=== PATIENT | male | born 2000 | race Caucasian/White ===

== ENCOUNTER 2020-07-30 11:36 | Outpatient (REF) | payer OTHER, SELFPAY ==
[2020-07-30 12:08] LABS: COVID-19 Test Negative (Negative)
== END 2020-07-30 11:37 | disposition home or self-care (01) ==
LOC: HO.LAB 11:36
PROVIDERS: Visit Provider Internal Medicine
DX: Z20.828 Contact with and (suspected) exposure to other viral communicable diseases (principal)
CPT/HCPCS: 87635

== ENCOUNTER 2020-08-23 12:35 | Outpatient (REF) | payer OTHER, SELFPAY ==
[2020-08-23 13:15] LABS: COVID-19 Test Negative (Negative)
== END 2020-08-23 12:36 | disposition home or self-care (01) ==
LOC: HO.LAB 12:35
PROVIDERS: Visit Provider Internal Medicine
DX: Z20.828 Contact with and (suspected) exposure to other viral communicable diseases (principal)
CPT/HCPCS: 87635

== ENCOUNTER 2022-05-09 12:09 | Emergency (ER) | payer OTHER, SELFPAY | END 2022-05-09 13:15 | disposition left against medical advice (07) | PROVIDERS: Emergency Provider Emergency Medicine | DX: R69 Illness, unspecified (principal) ==

== ENCOUNTER 2022-05-10 11:23 | Emergency (ER) | payer OTHER, SELFPAY ==
--- NOTE | ~2022-05-10 | US_ITS ---
EXAMINATION: US SCROTUM CLINICAL INFORMATION: Left scrotal pain. Rule out hernia.. COMPARISON: None TECHNIQUE: A sonogram of the scrotum was performed assessing estrada-scale appearance and color Doppler flow. Spectral Doppler analysis of the arterial and venous flow were performed in the testes bilaterally. FINDINGS: RIGHT: Right testicle measures 4.5 x 2.1 x 3.2 cm, volume 15.9 mL. No focal testicular parenchymal lesions are visualized. Spectral Doppler analysis of the arterial and venous flow is present in the right testis. Right epididymal head is normal in size. No significant right hydrocele or varicocele is seen. Right epididymal Doppler flow is normal. A small epididymal cyst measures 0.6 cm in maximum size. LEFT: Left testicle measures 4.6 x 1.9 x 2.7 cm, volume 12 mL. No focal testicular parenchymal lesions are visualized. Spectral Doppler analysis of the arterial and venous flow is present in the left testis. Left epididymal head is normal in size. No significant left hydrocele. Moderate left varicocele is seen. Left epididymal Doppler flow is normal. US/US scrotum IMPRESSION: Normal testes. Small right epididymal cyst and moderate left varicocele. A hernia was not noted on this examination. A dedicated ultrasound of the inguinal region is not performed.
--- NOTE | ~2022-05-10 | US_ITS ---
EXAMINATION: US SCROTUM CLINICAL INFORMATION: Left scrotal pain. Rule out hernia.. COMPARISON: None TECHNIQUE: A sonogram of the scrotum was performed assessing estrada-scale appearance and color Doppler flow. Spectral Doppler analysis of the arterial and venous flow were performed in the testes bilaterally. FINDINGS: RIGHT: Right testicle measures 4.5 x 2.1 x 3.2 cm, volume 15.9 mL. No focal testicular parenchymal lesions are visualized. Spectral Doppler analysis of the arterial and venous flow is present in the right testis. Right epididymal head is normal in size. No significant right hydrocele or varicocele is seen. Right epididymal Doppler flow is normal. A small epididymal cyst measures 0.6 cm in maximum size. LEFT: Left testicle measures 4.6 x 1.9 x 2.7 cm, volume 12 mL. No focal testicular parenchymal lesions are visualized. Spectral Doppler analysis of the arterial and venous flow is present in the left testis. Left epididymal head is normal in size. No significant left hydrocele. Moderate left varicocele is seen. Left epididymal Doppler flow is normal. US/US scrotum doppler IMPRESSION: Normal testes. Small right epididymal cyst and moderate left varicocele. A hernia was not noted on this examination. A dedicated ultrasound of the inguinal region is not performed.
[2022-05-10 11:55] VITALS: BP 127/62; PULSE 60; RESP 17; TEMP 36.1; O2SAT 98; BMI 20.4
--- NOTE | 2022-05-10 13:45 | ED.GENADULT ---
HPI - General Adult General Chief complaint: General Medical Stated complaint: Groin pain sent from urgent care Time Seen by Provider: 05/10/22 13:24 Source: patient Mode of arrival: ambulatory History of Present Illness HPI narrative: 21-year-old male with no significant past medical history presenting to the ED complaining of left upper scrotal pain times a few weeks s/p running around at work. Reports pain initially intermittent and now constant. Was seen at urgent care yesterday and recommended to come to ED for ultrasound. Denies trauma/injury, abdominal pain, flank pain, dysuria/hematuria, penile discharge, lesions, swelling/erythema. Is sexually active with 1 partner, denies history/concern for STI Onset (ago): week(s) Location: genitals Severity: moderate Related Data Allergies Allergy/AdvReac Type Severity Reaction Status Date / Time No Known Allergies Allergy Unverified 07/11/20 16:58 [No Known Allergies*] Review of Systems Review of Systems: Constitutional: No Fever, No Chills, No Night Sweats, No Fatigue, No Malaise ENT/Mouth: No Hearing loss, No Ear Pain, No Nasal Congestion, No sore throat, No Rhinorrhea, No Swallowing Difficulty Cardiovascular: No Chest Pain, No SOB Respiratory: No Cough, No Sputum, No Dyspnea Gastrointestinal: No Nausea, No Vomiting, No Diarrhea, No Constipation, No Abdominal pain, Genitourinary: No irregular bleeding, No Dysuria, No Urinary Frequency, No Hematuria, No Urinary Incontinence/retention, No Urgency, No Flank Pain, No Urinary Flow Changes, No Hesitancy, +scrotal pain, No swelling, No lesions Musculoskeletal: No joint pain, No Myalgias, No Joint Swelling Skin: No Skin Lesions, No rash Neuro: No Weakness, No Headache Yes all other systems are reviewed and are negative Constitutional: Constitutional: Reports as per [facility] Past Medical History Attestation statement: The following information was validated with the patient. Social History Social History Advance Directives: No Advance Directives Information Provided: No Physical Exam ED Vital Signs: Vital Signs - 24 hr 05/10/22 11:55 Temperature 97 F Pulse Rate 60 Respiratory Rate 17 Blood Pressure 127/62 Pulse Oximetry 98 Oxygen Delivery Method Room Air BMI result Body Mass Index 20.4 Const General: cooperative, healthy appearing and no acute distress Orientation/consciousness: patient oriented x3 Limitations: no limitations HENMT Head: Yes normal to inspection and Yes atraumatic Ears: hearing grossly normal bilaterally General nose exam: Normal external nose present Face and sinus: Yes normal facial exam Eyes General: appearance normal, both eyes and all related structures EOM: EOMs intact bilaterally Neck Neck: Yes normal visual inspection and Yes no meningeal signs Resp Effort & Inspection: normal respiratory effort and no respiratory distress Auscultation: clear to auscultation bilaterally Cardio Rate: regular rate Heart sounds: S1 normal heart sound present and S2 normal heart sound present GI Inspection: Yes normal to inspection Palpation (GI): Soft to palpation, nontender, no guarding and not rigid General: Yes no CVA tenderness Penis: normal penis and circumcised Meatus: meatus normal Scrotum: no ecchymosis, not edematous, not erythematous and other (+L scrotal tenderness) Testes: Testes normal, testicular lie normal, no masses and no testicular tenderness Back/Spine/Pelvis Back: no CVA tenderness Skin Rashes: no rashes Wounds: no wounds Neuro General: patient oriented x3, tone normal and no meningeal signs Gait exam (Neuro): Normal gait present Extrem General: Yes normal to inspection Course Course Course Narrative: -UA negative US scrotum IMPRESSION: Normal testes. Small right epididymal cyst and moderate left varicocele. ? A hernia was not noted on this examination. A dedicated ultrasound of the inguinal region is not performed. > results discussed with patient including needed follow-up with urology. He verbalized understanding and feels safe for discharge home Medical Decision Making MDM Narrative Medical decision making narrative: 21-year-old male with no significant past medical history presenting to the ED complaining of left upper scrotal pain times a few weeks s/p running around at work. On exam vital signs stable, NAD/nontoxic appearing, physical exam as above. Concern for varicocele vs inguinal hernia vs epididymitis/orchitis. No evidence of infection, no evidence of Barry gangrene. No appreciable lesions/erythema or cellulitis. Lower suspicion for testicular torsion Plan: UA, CT NG, scrotal ultrasound Medical Records Medical records reviewed: Yes I reviewed the patient's medical records. Lab Data Lab results reviewed: Yes I reviewed the patient's lab results. Labs: Lab Results 05/10/22 Range/Units 13:52 Urine Color YELLOW Urine Appearance CLEAR Urine pH 8.5 H (5.0-8.0) Ur Specific [place] 1.010 (1.005-1.025) Urine Protein NEG (NEG-TRACE) MG/DL Urine Glucose (UA) NEG (NEG) MG/DL Urine Ketones NEG (NEG) MG/DL Urine Blood NEG (NEG) Urine Nitrite NEG (NEG) Ur Leukocyte Esterase NEG (NEG) Discharge Plan Discharge Clinical Impression: Left varicocele Patient Disposition: Home, Self-Care Instructions: Varicocele (ED) Additional Instructions: Your ultrasound shows a small right epididymal cyst and a moderate left varicocele. This varicoceles likely was causing your pain, this has engorgement of your veins/vessels Treatment for this is recommended scrotal support, you can buy a scrotal sling Take Tylenol and Motrin Please follow-up with urology. If symptoms persist or worsen, pain becomes unbearable, he developed discharge from abdominal pain, nausea vomiting return to the emergency department Referrals: Toni Buck MD [Physician] - 5 days
[2022-05-10 13:59] LABS: Appearance Urine CLEAR; Color Urine YELLOW; Glucose Urine UA NEG (NEG); Leukocyte Esterase Urine NEG (NEG); Nitrite Urine NEG (NEG); PH 8.5 (5.0-8.0); Urine Blood NEG (NEG); Urine Ketones NEG (NEG); Urine Protein NEG (NEG-TRACE)
[2022-05-10 22:00] LABS: CT PCR NOT DETECTED (Not Detect.); NG PCR NOT DETECTED (Not Detect.)
== END 2022-05-10 15:09 | disposition home or self-care (01) ==
PROVIDERS: Physician Assistant; Emergency Provider Emergency Medicine
DX: I86.1 Scrotal varices (principal); R10.32 Left lower quadrant pain; Z79.899 Other long term (current) drug therapy; Z20.2 Contact with and (suspected) exposure to infections with a predominantly sexual mode of transmission
CPT/HCPCS: 76870; 81003; 87491; 87591; 93975; 99282; 99283

== ENCOUNTER 2023-10-02 10:14 | Outpatient (AMB) | payer OTHER, SELFPAY ==
--- NOTE | 2023-10-02 10:41 | MHC.OFFWIV ---
Intake Vital Signs 10/02/23 10:42 Height 6 ft 1 in Weight 169 lb BMI 22.3 BP 90/60 Blood Pressure Location Rt brachial Position Sitting Pulse 60 Pulse Source Pulse Oximeter Temp 98.2 F Temp Source Oral Pulse Oximetry (%) 97 Oxygen Delivery Method Room Air Intake Visit Reasons: EP, tachycardia Intake Note: Pt is here today c/o tightness in his chest: x4days Patient Tobacco Use Status: Current everyday Tobacco user Allergies No Known Allergies [No Known Allergies*] Allergy (Verified 10/02/23 11:07) Do you need a note to return to daycare/school/sports/work: No HPI HPI Comments History of Present Illness Details 22-year-old male that presents for chest discomfort. Patient was recently started on doxycycline for suspected chlamydia. After taking doxycycline developed chest heaviness and left arm pain. Denies shortness of breath nausea vomiting other associated signs and symptoms. The pain is worse with palpation and. PFSH Social History Patient Tobacco Use Status: Current everyday Tobacco user Review of Systems Card Reports chest pain Physical Exam Vital Signs: Last Vital Signs Temp 98.2 F 10/02/23 10:42 Pulse 60 10/02/23 10:42 BP 90/60 10/02/23 10:42 Pulse Ox 97 10/02/23 10:42 Oxygen Delivery Method Room Air 10/02/23 10:42 BMI result Body Mass Index 22.3 Const General: cooperative, no acute distress and alert Orientation/consciousness: patient oriented x3 Limitations: no limitations HEENT Head: Yes normal to inspection Ears: hearing grossly normal bilaterally and external ears normal General nose exam: Normal external nose present Eyes General: appearance normal, both eyes and all related structures Neck Neck: Yes normal visual inspection Chest Chest palpation & inspection: normal inspection of the chest Resp Effort & Inspection: normal respiratory effort, able to speak in complete sentences and no audible wheezes Auscultation: clear to auscultation bilaterally Cardio Rate: regular rate Rhythm: regular rhythm GI Inspection: Yes normal to inspection Palpation (GI): Soft to palpation and nontender Skin General skin exam: no rashes or lesions noted Neuro General: patient oriented x3 Psych Appearance: grossly normal Mental Status: mental status grossly normal Speech and movement: Normal speech and movement present Affect: normal affect Attitude: cooperative Thought process: Normal thought process present Thought content: Normal thought content present Assessment & Plan Assessment & Plan (1) Chest discomfort: Code(s): R07.89 - Other chest pain Plan: Exam is largely reassuring as chest pain is reproducible. Vitals are within normal limits no murmurs rubs or gallops. Unclear etiology of patient's chest discomfort. Will suspicion for PTX given clear lung sounds bilaterally no trauma. Suspect musculoskeletal in nature will order EKG. EKG shows sinus bradycardia rate of 48 intervals normal new significant ST segment changes however mild shoe elevation the precordial leads in the inferior leads for present early repol. Discussed his findings with the patient stated that certain things cannot be ruled out such as OK in pericarditis the low suspicion for those recommended for into the emergency department for further evaluation for she has declined at this time patient states he will follow Wednesday. Orders: Orders AMB EKG-In Office Today R07.9 - Chest pain, unspecified Coding Level of Care Code Est Pt Level 3 (36608) Diagnoses Chest discomfort R07.89
[2023-10-02 10:42] VITALS: BP 90/60; PULSE 60; TEMP 36.8; O2SAT 97; BMI 22.3
== END 2023-10-02 11:35 | disposition home or self-care (01) ==
PROVIDERS: PCP Physician Assistant; Visit Provider Physician Assistant
DX: R07.89 Other chest pain (principal)
CPT/HCPCS: 93000; 99051; 99213

== ENCOUNTER 2023-10-21 12:38 | Emergency (ER) | payer OTHER, SELFPAY ==
--- NOTE | ~2023-10-21 | CT_ITS ---
EXAMINATION: CT ABDOMEN AND PELVIS WITHOUT CONTRAST CLINICAL INFORMATION: Bilateral flank pain, dark urine. COMPARISON: None available. TECHNIQUE: Multidetector volumetric imaging was performed from the superior aspect of the liver through the pubic symphysis. Sagittal and coronal reformatted images were obtained on the technologist's workstation. This CT examination was performed using dose optimization techniques as appropriate, variously including the following: *Automated exposure control *Adjustment of mA and/or kV according to patient size (this includes techniques or standardized protocols for targeted exams where dose is matched to indication/reason for exam; i.e. extremities or head) *Use of iterative reconstruction technique DLP: 390 mGy-cm FINDINGS: LUNG BASES: The visualized lung bases are unremarkable. LIVER, GALLBLADDER, AND BILIARY TREE: The liver is normal in size, shape, and attenuation. No focal hepatic lesion or biliary ductal dilatation is present. The gallbladder is unremarkable with no evidence of radiopaque gallstones, gallbladder wall thickening, or obvious pericholecystic inflammatory changes. PANCREAS: Unremarkable. SPLEEN: Unremarkable. ADRENAL GLANDS: Unremarkable. KIDNEYS AND URETERS: The kidneys are normal in size, shape, and attenuation. There is a 2 mm nonobstructive radiopaque calculi mid pole right kidney. No caliectasis or hydronephrosis seen. BLADDER: Unremarkable. GASTROINTESTINAL TRACT: There is moderate scattered stool seen throughout the colon without significant distention. The small bowel loops are normal caliber. Appendix is normal caliber at. No inflammatory process, free air or free fluid. ABDOMINAL WALL: No significant hernia is appreciated. LYMPH NODES: Normal. VASCULAR: Unremarkable. PELVIC VISCERA: Unremarkable. OSSEOUS STRUCTURES: No aggressive lytic or sclerotic process seen. CT/CT abdomen pelvis wo IV con IMPRESSION: 1. Nonobstructive 2 mm radiopaque calculi mid pole right kidney. No caliectasis or hydronephrosis seen. 2. Mild constipation. Fleischner guidelines were followed.
[2023-10-21 13:07] VITALS: BP 114/72; PULSE 77; RESP 16; TEMP 36.4; O2SAT 97; BMI 22.4
--- NOTE | 2023-10-21 13:07 | ED_ITS ---
HPI - General Adult General Chief complaint: Back Pain/Injury Stated complaint: kidney pain Time Seen by Provider: 10/21/23 18:15 Source: patient Mode of arrival: ambulatory Limitations: no limitations History of Present Illness HPI narrative: Patient no history of kidney stones in the past complaining of bilateral flank pain, suprapubic pain, dark urine no history of trauma feels some pain when he urinates no frequency no hematuria no history of substance abuse was seen and [facility] and started on antibiotics prophylactically but his GC and chlamydia were negative no penile discharge no fever no chills no nausea no vomiting Related Data Previous Rx's Medication Instructions Recorded ibuprofen 600 mg tablet 600 mg PO Q6H PRN fever or pain 10/21/23 #30 tabs Allergies Allergy/AdvReac Type Severity Reaction Status Date / Time No Known Allergies Allergy Verified 10/02/23 11:07 [No Known Allergies*] Review of Systems 2 Review of Systems: Yes all other systems are reviewed and are negative PMFSH Social History Social History Patient Tobacco Use Status: Current everyday Tobacco user Smoked in Last 30 Days: Yes Use of substances other than those prescribed or required for medical reasons: Yes Substance Use Type: Marijuana Advance Directives: No Advance Directives Information Provided: No Physical Exam ED Vital Signs: Vital Signs - 24 hr 10/21/23 13:07 10/21/23 18:31 Temperature 97.5 F Pulse Rate 77 63 Respiratory Rate 16 18 Blood Pressure 114/72 137/67 Pulse Oximetry 97 99 Oxygen Delivery Method Room Air Room Air BMI result Body Mass Index 22.4 Appearance: Alert. Oriented X3. No acute distress. Eyes: No pallor or icterus ENT: Pharynx normal. Oral Mucosa moist Neck: Normal inspection. Neck supple. CVS: Normal heart rate and rhythm. Pulses normal. Respiratory: No respiratory distress. Equal air entry bilateral, Abdomen: Soft and nontender. Bowel sounds are present, no mass palpable, left CVA tenderness mild no midline tenderness Skin: Skin warm and dry. Normal skin color. Normal skin turgor. Neuro: Oriented X 3. Course Course Course Narrative: RME:?23 yo male here with my kidneys hurt . +intermittent bilateral flank pain x3 weeks, becoming more constant. + dysuria, dark, foul smelling urine. Reports same pain 1 mo ago, evaluated, diagnosed w/ UTI, started doxy, stopped taking it. sexually active w/ one partner, no concern for STD. negative CT/NG test one mo ago. denies penile discharge, fever, chills, abdominal pain. + well appearing, no CVAT plan: labs, UA, CT Full HPI, ROS and PE to be performed by the primary ED provider. Medications Administered Discontinued Medications Generic Name Dose Route Start Last Admin Trade Name Freq PRN Reason Stop Dose Admin Ibuprofen 600 mg 10/21/23 18:32 10/21/23 18:39 Ibuprofen 600 Mg Tablet PO 10/21/23 18:33 Not Given ONCE ONE Medical Decision Making Medical Decision Making [facility] Narrative: Patient with back pain workup is negative discharge patient on ibuprofen likely muscular strain Differential Diagnosis Differential Diagnoses: The differential diagnosis associated with the presentation includes Kidney stone/UTI/STI Lab Data [facility] Lab Attestation statement: I reviewed the patient's lab results. 10/21/23 13:20 10/21/23 13:20 Labs: Lab Results 10/21/23 10/21/23 Range/Units 13:20 13:24 WBC 7.3 (4.8-10.8) X10*3/uL RBC 4.79 (4.60-5.80) X10*6/uL Hgb 14.4 (14.0-18.0) g/dl Hct 41.9 L (42.0-52.0) % MCV 87.5 (80.0-98.0) fL MCH 30.1 (27.0-33.0) pg MCHC 34.4 (31.0-36.0) g/dl RDW 12.4 (11.0-16.0) % Plt Count 227 (160-400) X10*3/uL MPV 9.1 L (9.4-12.4) fL Immature Gran % (Auto) 0.3 (0.0-0.4) % Neut % (Auto) 48.8 (45-73) % Lymph % (Auto) 37.2 (20-40) % Starke % (Auto) 12.2 H (2-11) % Eos % (Auto) 1.2 (0-4) % Baso % (Auto) 0.3 (0-2) % Lymph # (Auto) 2.7 (1.2-4.9) X10*3/uL [place]ke # (Auto) 0.9 (0.1-1.2) X10*3/uL Eos # (Auto) 0.1 (0.0-0.4) X10*3/uL Baso # (Auto) 0.0 (0.0-0.2) X10*3/uL Abs Immat Gran (auto) 0.02 (0.00-0.03) X10*3/uL Absolute Neuts (auto) 3.6 (2.0-8.3) x10*3/uL Absolute Nucleated RBC 0.000 (0.0-0.012) X10*3/uL Nucleated RBC % (auto) 0.0 (0.0-0.2) /100WBC ESR 1 (0-15) MM/HR Sodium 140 (135-145) mmol/L Potassium 4.1 (3.3-5.1) mmol/L Chloride 105 (96-108) mmol/L Carbon Dioxide 29 (22-29) mmol/L Anion Gap 10 L (12-20) BUN 12 (9-16) mg/dL Creatinine 0.90 (0.5-1.4) mg/dL Estim Creat Clear Calc 136.8 Estimated GFR > 60 Random Glucose 84 (60-115) mg/dL Calcium 9.1 (8.4-10.2) mg/dL Magnesium 1.9 (1.6-2.6) mg/dL Total Creatine Kinase 97 (38-174) U/L C-Reactive Protein < 0.10 (< or = 0.50) mg/dL Urine Color Yellow Urine Appearance Clear Urine pH 6.5 (5.0-9.0) Ur Specific [place] 1.015 (1.005-1.025) Urine Protein Negative (Neg-Trace) mg/dL Urine Glucose (UA) Negative (Negative) mg/dL Urine Ketones Negative (Negative) mg/dL Urine Blood Negative (Negative) Urine Nitrite Negative (Negative) Ur Leukocyte Esterase Negative (Negative) Discharge Plan Discharge Clinical Impression: Renal colic Patient Disposition: Home, Self-Care Instructions: Renal Colic (ED) Additional Instructions: Causes of flank pain is not clear likely musculoskeletal Take ibuprofen for pain, drink plenty of fluids Your urine and CT scan negative for acute pathology Follow-up with PCP if not better Prescriptions: New ibuprofen 600 mg tablet 600 mg PO Q6H PRN (Reason: fever or pain) Qty: 30 0RF Interventions: ED Discharge Assessment Last Done: 10/21/23 18:40 Discharge Date/Time: 10/21/23 18:52
[2023-10-21 13:28] LABS: MANUAL DIFF FLAG NO
[2023-10-21 13:33] LABS: Basophils Percent Auto 0.3 % (0-2); Eosinophils Absolute Auto 0.1 X10*3/uL (0.0-0.4); Eosinophils Percent Auto 1.2 % (0-4); Hematocrit 41.9 % (42.0-52.0); Hemoglobin 14.4 g/dl (14.0-18.0); Imm Gran Abs Auto 0.02 X10*3/uL (0.00-0.03); Imm Gran Pct Auto 0.3 % (0.0-0.4); Lymphocytes Absolute Auto 2.7 X10*3/uL (1.2-4.9); Lymphocytes Percent Auto 37.2 % (20-40); Mean Corpuscular HGB Conc 34.4 g/dl (31.0-36.0); Mean Corpuscular Hemoglobin 30.1 pg (27.0-33.0); Mean Corpuscular Volume 87.5 fL (80.0-98.0); Mean Platelet Volume 9.1 fL (9.4-12.4); Monocytes Absolute Auto 0.9 X10*3/uL (0.1-1.2); Monocytes Percent Auto 12.2 % (2-11); Neutrophils Absolute Auto 3.6 x10*3/uL (2.0-8.3); Neutrophils Percent Auto 48.8 % (45-73); Platelet Count 227 X10*3/uL (160-400); Red Blood Count 4.79 X10*6/uL (4.60-5.80); Red Cell Distribution Width 12.4 % (11.0-16.0); White Blood Count 7.3 X10*3/uL (4.8-10.8)
[2023-10-21 13:34] LABS: Appearance Urine Clear; Color Urine Yellow; Glucose Urine UA Negative (Negative); Leukocyte Esterase Urine Negative (Negative); Nitrite Urine Negative (Negative); PH 6.5 (5.0-9.0); Specific Gravity - Urine 1.015 (1.005-1.025); Urine Blood Negative (Negative); Urine Ketones Negative (Negative); Urine Protein Negative (Neg-Trace)
[2023-10-21 13:46] LABS: Anion Gap 10 (12-20); Blood Urea Nitrogen 12 mg/dL (9-16); C Reactive Protein < 0.10 mg/dL (< or = 0.50); Calcium 9.1 mg/dL (8.4-10.2); Carbon Dioxide 29 mmol/L (22-29); Chloride 105 mmol/L (96-108); Creatinine Clr Calc Pharmacy 136.8; Estimated Glomerular Filt Rate > 60; Glucose Random 84 mg/dL (60-115); Magnesium 1.9 mg/dL (1.6-2.6); Potassium 4.1 mmol/L (3.3-5.1); Sodium 140 mmol/L (135-145)
[2023-10-21 14:11] LABS: Erythrocyte Sedimentation Rate 1 MM/HR (0-15)
[2023-10-21 18:31] VITALS: BP 137/67; PULSE 63; RESP 18; O2SAT 99
== END 2023-10-21 18:52 | disposition home or self-care (01) ==
LOC: HO.ED 18:51
PROVIDERS: Physician Assistant Medical; Emergency Provider Internal Medicine; PCP Physician Assistant
DX: N23 Unspecified renal colic (principal); M54.50 Low back pain, unspecified; Z79.899 Other long term (current) drug therapy
CPT/HCPCS: 36415; 74176; 80048; 81003; 82550; 83735; 85025; 85652; 86140; 99284

== ENCOUNTER 2024-07-11 15:42 | Emergency (ER) | payer BC, SELFPAY ==
--- NOTE | ~2024-07-11 | US_ITS ---
EXAMINATION: US SCROTUM CLINICAL INFORMATION: Right-sided scrotal pain and swelling. COMPARISON: Scrotal ultrasound May 10, 2022 TECHNIQUE: A sonogram of the scrotum was performed assessing estrada-scale appearance and color Doppler flow. Spectral Doppler analysis of the arterial and venous flow were performed in the testes bilaterally. FINDINGS: RIGHT: Right testicle measures 4.9 x 1.8 x 3 cm, volume 14 mL. No focal testicular parenchymal lesions are visualized. Spectral Doppler analysis of the arterial and venous flow is increased in the right testis. Right epididymal head is normal in size. Right-sided epididymal cyst measuring 0.5 x 0.4 x 0.5 cm. Right varicocele measuring 0.3 cm. Right epididymal Doppler flow is normal. Small right hydrocele. LEFT: Left testicle measures 4.6 x 1.9 x 3.3 cm, volume 14.6 mL. No focal testicular parenchymal lesions are visualized. Spectral Doppler analysis of the arterial and venous flow is normal in the left testis. Left epididymal head is normal in size. No left hydrocele is seen. Left varicocele measuring 0.3 cm. Left epididymal Doppler flow is normal. US/US scrotum doppler IMPRESSION: 1. No testicular torsion. 2. Right-sided epididymal cyst, unchanged. Small right hydrocele. 3. Bilateral varicoceles, more prominent on the left. Electronically signed by: Larry Kohler MD 07/11/2024 08:00 PM EDT
--- NOTE | ~2024-07-11 | US_ITS ---
EXAMINATION: US SCROTUM CLINICAL INFORMATION: Right-sided scrotal pain and swelling. COMPARISON: Scrotal ultrasound May 10, 2022 TECHNIQUE: A sonogram of the scrotum was performed assessing estrada-scale appearance and color Doppler flow. Spectral Doppler analysis of the arterial and venous flow were performed in the testes bilaterally. FINDINGS: RIGHT: Right testicle measures 4.9 x 1.8 x 3 cm, volume 14 mL. No focal testicular parenchymal lesions are visualized. Spectral Doppler analysis of the arterial and venous flow is increased in the right testis. Right epididymal head is normal in size. Right-sided epididymal cyst measuring 0.5 x 0.4 x 0.5 cm. Right varicocele measuring 0.3 cm. Right epididymal Doppler flow is normal. Small right hydrocele. LEFT: Left testicle measures 4.6 x 1.9 x 3.3 cm, volume 14.6 mL. No focal testicular parenchymal lesions are visualized. Spectral Doppler analysis of the arterial and venous flow is normal in the left testis. Left epididymal head is normal in size. No left hydrocele is seen. Left varicocele measuring 0.3 cm. Left epididymal Doppler flow is normal. US/US scrotum IMPRESSION: 1. No testicular torsion. 2. Right-sided epididymal cyst, unchanged. Small right hydrocele. 3. Bilateral varicoceles, more prominent on the left. Electronically signed by: Larry Kohler MD 07/11/2024 08:00 PM EDT
[2024-07-11 16:08] VITALS: BP 135/72; PULSE 88; RESP 16; TEMP 37.3; O2SAT 95; BMI 23.1
--- NOTE | 2024-07-11 16:08 | ED.ABDPAIN ---
HPI - Abdominal Pain General Chief Complaint: Urogenital-Male Stated Complaint: Lower abd pain Time Seen by Provider: 07/11/24 18:36 History of Present Illness ED Provider: Kennedy HPI narrative: 23 y/o M patient; without significant PMH; presents from home reporting one day of suprapubic and right-sided testicular pain. He states his right testicle is more swollen and red than normal. Associated with nausea without vomiting or diarrhea. Denies: chest pain, SOB, cough/congestion, fever or chills, hematuria, dysuria. Patient notes there is a risk of STDs. Related Data Previous Rx's ?Medication ?Instructions ?Recorded ibuprofen 600 mg tablet 600 mg PO Q6H PRN fever or pain 10/21/23 #30 tabs Allergies Allergy/AdvReac Type Severity Reaction Status Date / Time No Known Allergies Allergy Verified 07/11/24 16:10 [No Known Allergies*] Review of Systems Review of Systems Yes all other systems are reviewed and are negative Denies Sensory deficit (Neuro) PMFSH Past Medical History Attestation statement: The following information was validated with the patient. Source: old records reviewed Social History Social History Patient Tobacco Use Status: Current everyday Tobacco user Smoked in Last 30 Days: No Use of substances other than those prescribed or required for medical reasons: Yes Substance Use Type: Marijuana Substance Use Frequency: Chronic Longstanding Advance Directives: No Advance Directives Information Provided: No Physical Exam ED Vital Signs: Vital Signs - 24 hr 07/11/24 16:08 07/11/24 18:32 Temperature 99.1 F 98.8 F Pulse Rate 88 86 Respiratory Rate 16 20 Blood Pressure 135/72 121/76 Pulse Oximetry 95 99 Oxygen Delivery Method Room Air Room Air BMI result Body Mass Index 23.1 Patient is afebrile and hemodynamically stable. Const General: cooperative Orientation/consciousness: patient oriented x3 HENMT Head: Yes normal to inspection and Yes atraumatic Eyes General: appearance normal, both eyes and all related structures Pupils: Equal, round and reactive pupils present EOM: EOMs intact bilaterally Neck Neck: Yes normal visual inspection, Yes full ROM, Yes supple and No tender Chest Chest palpation & inspection: normal inspection of the chest and normal palpation of entire chest wall Resp Effort & Inspection: normal respiratory effort, able to speak in complete sentences, Actively coughing and no respiratory distress Auscultation: clear to auscultation bilaterally Cardio Rate: regular rate Rhythm: regular rhythm Peripheral pulses: Peripheral pulses 2+ throughout GI Inspection: Yes normal to inspection, No Abdominal wall edema and No distended Palpation (GI): Soft to palpation, not firm, nontender, no guarding and not rigid Auscultation: normal bowel sounds Other: Penile shaft unremarkable. Scrotum unremarkable without significant erythema or swelling. Intact cremasteric reflex. Back/Spine/Pelvis Back: No back tenderness Neuro General: patient oriented x3 Cranial nerves: Yes Equal, round and reactive pupils present Motor exam (neuro): 5/5 motor strength present throughout Sensory Exam: No Sensory deficit (Neuro) Course Course Course Narrative: This is a Rapid Medical Examination (RME) performed by Mely Cross PA-C in triage. Full HPI, ROS, assessment and treatment plan per primary provider in the Main ED. 23 y/o male presents to the ER for evaluation of suprapubic pain and scrotal pain and swelling, worse on the right, for the last 1 days. mild nausea but no vomiting, diarrhea, urethral discharge. reports swelling and redness of the right testicle. Plan: UA, CT/NG, scrotal U/S Reevaluation(s) Reevaluation #1: Patient is afebrile and hemodynamically stable. Reviewed triage orders. US notable for right-sided epididymal cyst, unchanged, small right hydrocele, and no testicular torsion. UA unremarkable. CBC and BMP unremarkable. Explained to patient that STD testing will take 2 - 3 days to result. He would like to wait for results prior to antibiotic treatment. Plan: Discharge to home with PCP follow up Return precautions given Medical Decision Making Lab Data 07/11/24 20:12 07/11/24 20:12 Labs: Lab Results 07/11/24 07/11/24 Range/Units 18:31 20:12 WBC 5.4 (4.8-10.8) X10*3/uL RBC 4.84 (4.60-5.80) X10*6/uL Hgb 15.0 (14.0-18.0) g/dl Hct 41.9 L (42.0-52.0) % MCV 86.6 (80.0-98.0) fL MCH 31.0 (27.0-33.0) pg MCHC 35.8 (31.0-36.0) g/dl RDW 12.5 (11.0-16.0) % Plt Count 161 D (160-400) X10*3/uL MPV 9.1 L (9.4-12.4) fL Immature Gran % (Auto) 0.2 (0.0-0.4) % Neut % (Auto) 53.8 (45-73) % Lymph % (Auto) 27.1 (20-40) % Stephens % (Auto) 13.3 H (2-11) % Eos % (Auto) 5.2 H (0-4) % Baso % (Auto) 0.4 (0-2) % Lymph # (Auto) 1.5 (1.2-4.9) X10*3/uL Stephens # (Auto) 0.7 (0.1-1.2) X10*3/uL Eos # (Auto) 0.3 (0.0-0.4) X10*3/uL Baso # (Auto) 0.0 (0.0-0.2) X10*3/uL Abs Immat Gran (auto) 0.01 (0.00-0.03) X10*3/uL Absolute Neuts (auto) 2.9 (2.0-8.3) x10*3/uL Absolute Nucleated RBC 0.000 (0.0-0.012) X10*3/uL Nucleated RBC % (auto) 0.0 (0.0-0.2) /100WBC Sodium 139 (135-145) mmol/L Potassium 3.8 (3.3-5.1) mmol/L Chloride 103 (96-108) mmol/L Carbon Dioxide 28 (22-29) mmol/L Anion Gap 12 (12-20) BUN 11 (9-16) mg/dL Creatinine 0.95 (0.5-1.4) mg/dL Estim Creat Clear Calc 133.6 Estimated GFR > 60 Random Glucose 97 (60-115) mg/dL Calcium 9.4 (8.4-10.2) mg/dL Total Bilirubin 0.5 (0.0-1.0) mg/dL Direct Bilirubin 0.2 (0.0-0.5) mg/dL AST 26 (5-37) U/L ALT 29 (0-40) U/L Alkaline Phosphatase 66 (39-117) U/L Total Protein 7.3 (6.5-8.0) g/dL Albumin 4.5 (3.5-5.0) g/dL Urine Color Yellow Urine Appearance Clear Urine pH 8.0 (5.0-9.0) Ur Specific [place] >= 1.030 H (1.005-1.025) Urine Protein Trace (Neg-Trace) mg/dL Urine Glucose (UA) Negative (Negative) mg/dL Urine Ketones Trace (Negative) mg/dL Urine Blood Negative (Negative) Urine Nitrite Negative (Negative) Ur Leukocyte Esterase Negative (Negative) Radiology Impression Discussion of test interpretation with radiology: I have reviewed the radiologist's reading. Radiologist Impression: EXAMINATION: US SCROTUM CLINICAL INFORMATION: Right-sided scrotal pain and swelling. COMPARISON: Scrotal ultrasound May 10, 2022 TECHNIQUE: A sonogram of the scrotum was performed assessing estrada-scale appearance and color Doppler flow. Spectral Doppler analysis of the arterial and venous flow were performed in the testes bilaterally. FINDINGS: RIGHT: Right testicle measures 4.9 x 1.8 x 3 cm, volume 14 mL. No focal testicular parenchymal lesions are visualized. Spectral Doppler analysis of the arterial and venous flow is increased in the right testis. Right epididymal head is normal in size. Right-sided epididymal cyst measuring 0.5 x 0.4 x 0.5 cm. Right varicocele measuring 0.3 cm. Right epididymal Doppler flow is normal. Small right hydrocele. LEFT: Left testicle measures 4.6 x 1.9 x 3.3 cm, volume 14.6 mL. No focal testicular parenchymal lesions are visualized. Spectral Doppler analysis of the arterial and venous flow is normal in the left testis. Left epididymal head is normal in size. No left hydrocele is seen. Left varicocele measuring 0.3 cm. Left epididymal Doppler flow is normal. US/US scrotum doppler IMPRESSION: 1. No testicular torsion. 2. Right-sided epididymal cyst, unchanged. Small right hydrocele. 3. Bilateral varicoceles, more prominent on the left. Electronically signed by: Larry Kohler MD 07/11/2024 08:00 PM EDT RP Discharge Plan Discharge Clinical Impression: Pain in scrotum Patient Disposition: Home, Self-Care Instructions: Scrotal Pain (ED) Additional Instructions: As we discussed, you were seen today for scrotal pain. Your urine, labs, and US were reassuring. You will be called if your STD testing results positive. Please follow up with your PCP within the next 1 - 2 days for re-evaluation. Return to the emergency department for: Worsening abdominal or scrotal pain Fever Prescriptions: No Action ibuprofen 600 mg tablet 600 mg PO Q6H PRN (Reason: fever or pain) Qty: 30 0RF Print Language: Czech
[2024-07-11 18:32] VITALS: BP 121/76; PULSE 86; RESP 20; TEMP 37.1; O2SAT 99
[2024-07-11 18:55] LABS: Appearance Urine Clear; Color Urine Yellow; Glucose Urine UA Negative (Negative); Leukocyte Esterase Urine Negative (Negative); Nitrite Urine Negative (Negative); Specific Gravity - Urine >= 1.030 (1.005-1.025); Urine Blood Negative (Negative); Urine Ketones Trace mg/dL (Negative); Urine Protein Trace mg/dL (Neg-Trace)
[2024-07-11 20:20] LABS: MANUAL DIFF FLAG NO
[2024-07-11 20:28] LABS: Basophils Percent Auto 0.4 % (0-2); Eosinophils Absolute Auto 0.3 X10*3/uL (0.0-0.4); Eosinophils Percent Auto 5.2 % (0-4); Hematocrit 41.9 % (42.0-52.0); Imm Gran Abs Auto 0.01 X10*3/uL (0.00-0.03); Imm Gran Pct Auto 0.2 % (0.0-0.4); Lymphocytes Absolute Auto 1.5 X10*3/uL (1.2-4.9); Lymphocytes Percent Auto 27.1 % (20-40); Mean Corpuscular HGB Conc 35.8 g/dl (31.0-36.0); Mean Corpuscular Volume 86.6 fL (80.0-98.0); Mean Platelet Volume 9.1 fL (9.4-12.4); Monocytes Absolute Auto 0.7 X10*3/uL (0.1-1.2); Monocytes Percent Auto 13.3 % (2-11); Neutrophils Absolute Auto 2.9 x10*3/uL (2.0-8.3); Neutrophils Percent Auto 53.8 % (45-73); Platelet Count 161 X10*3/uL (160-400); Red Blood Count 4.84 X10*6/uL (4.60-5.80); Red Cell Distribution Width 12.5 % (11.0-16.0); White Blood Count 5.4 X10*3/uL (4.8-10.8)
[2024-07-11 20:45] LABS: Alanine Aminotransferase 29 U/L (0-40); Albumin Level 4.5 g/dL (3.5-5.0); Alkaline Phosphatase 66 U/L (39-117); Anion Gap 12 (12-20); Aspartate Amino Transferase 26 U/L (5-37); Bilirubin Direct 0.2 mg/dL (0.0-0.5); Bilirubin Total 0.5 mg/dL (0.0-1.0); Blood Urea Nitrogen 11 mg/dL (9-16); Calcium 9.4 mg/dL (8.4-10.2); Carbon Dioxide 28 mmol/L (22-29); Chloride 103 mmol/L (96-108); Creatinine Clr Calc Pharmacy 133.6; Estimated Glomerular Filt Rate > 60; Glucose Random 97 mg/dL (60-115); Potassium 3.8 mmol/L (3.3-5.1); Sodium 139 mmol/L (135-145); Total Protein 7.3 g/dL (6.5-8.0)
[2024-07-11 21:23] VITALS: BP 00/00; PULSE 0; RESP 0; TEMP -17.7; TEMP 0
[2024-07-12 04:06] LABS: CT PCR NOT DETECTED (Not Detect.); NG PCR NOT DETECTED (Not Detect.)
[2024-07-12 07:31] LABS: HIV AB/AG Nonreactive (Nonreactive); HIV Num 1 0.06 S/CO (0.00-0.99)
[2024-07-12 07:52] LABS: Syphilis Screen Nonreactive (Nonreactive)
== END 2024-07-11 21:24 | disposition home or self-care (01) ==
PROVIDERS: Physician Assistant; Emergency Provider Emergency Medicine
DX: N50.811 Right testicular pain (principal); R11.0 Nausea; R10.2 Pelvic and perineal pain; N50.89 Other specified disorders of the male genital organs; Z79.899 Other long term (current) drug therapy
CPT/HCPCS: 36415; 76870; 80048; 80076; 81003; 85025; 86780; 87389; 87491; 87591; 93975; 99284

== ENCOUNTER 2024-12-14 08:21 | Outpatient (AMB) | payer OTHER, SELFPAY ==
--- NOTE | 2024-12-14 08:28 | MHC.PC.OV ---
Vital Signs 12/14/24 08:29 Height 6 ft 0.45 in Weight 176 lb BMI 23.6 BP 108/74 Blood Pressure Location Rt brachial Position Sitting Respiration 16 Pulse 87 Pulse Source Pulse Oximeter Pulse Oximetry (%) 97 Oxygen Delivery Method Room Air Intake Visit Reasons: labs, ppi Allergies No Known Allergies [No Known Allergies*] Allergy (Verified 12/14/24 08:29) Medication List - Last Reconciled 12/14/24 by Yenifer German PA-C No Known Home Meds Tobacco use date assessed: 12/14/24 Dental Screening Dental Screen Date: 09/27/24 HPI labs, ppi HPI Details Patient is a 24-year-old male who presents today for a follow up. He was seen recently to establish care and to discuss concerns of GERD and constipation. He was supposed to complete labs before today's appointment but forgot. I did start him on pantoprazole and encouraged a stool softener. He states that he never picked up the pantoprazole and made diet changes in the acid reflux got a lot better. He was also referred at that visit to GI and did follow with [facility]. He states that he saw them last month and that the char filter operator helper wanted him to check labs but he has not yet done that. He did start him on MiraLax in order a CT of the abdomen and pelvis which is pending an appointment. He states that he does have a follow up arranged with GI. The constipation is better when he uses MiraLax and a stool softener. He is also trying to make some lifestyle modifications to improve the constipation. He has no acute concerns today. Denies any weight changes. We did discuss that his weight did fluctuate on our scale and he states that he always fluctuates between 185 lb and 175 lb depending on the weekend how active he is. He denies any difficulty swallowing, swelling in the neck, fever, chills, rectal bleeding. No urinary symptoms. Overall feeling well. Energy is normal. No diarrhea. [facility] Surgical History (Updated 11/02/24 @ 14:40 by Ale Valiente) H/O wisdom tooth extraction Social History (System 11/02/24 @ 14:40 by Ale Valiente) Housing: Apartment Alcohol intake: current Alcohol intake frequency: holidays/special occasions only Patient Tobacco Use Status: Former Tobacco user e-Cigarette/Vaping Use: Former Use Second Hand Smoke Exposure: No Substance Use Type: Former Substance User and Marijuana service: No Current occupational status: employed Current occupation: [employer] Current occupational exposures/hazards: No Cognitive needs: No Hearing needs: No Vision needs: No Questionnaire PHQ-9 Over the last 2 weeks, how often have you been bothered by any of the following problems? 1. Little interest or pleasure in doing things: not at all 2. Feeling down, depressed, or hopeless: not at all 3. Trouble falling or staying asleep, or sleeping too much: not at all 4. Feeling tired or having little energy: not at all 5. Poor appetite or overeating: not at all 6. Feeling bad about yourself - or that you are a failure or have let yourself or your family down: not at all 7. Trouble concentrating on things, such as reading the newspaper or watching television: not at all 8. Moving or speaking so slowly that other people could have noticed. Or the opposite - being so fidgety or restless that you have been moving around a lot more than usual: not at all 9. Thoughts that you would be better off or of hurting yourself in some way: not at all Total score: 0 Depression Screening Interpretation: Negative Depression Screening Done: Yes 57271 - PHQ-9 Billing: Yes Source: Developed by Drs. Gabriel Dc, Brittney Alvarado, Leonardo August and colleagues, with an educational sami from [employer]. Thrive Questionnaire Date Thrive assessed: 12/14/24 I am a: Patient What is your living situation today?: I have a steady place to live Within the past 12 months, did the food you bought not last and you didn't have the money to get more?: Never true Within the past 12 months, did you worry whether your food would run out before you got money to buy more?: Never true Do you have trouble paying for medicines?: No Do you have trouble getting transportation to medical appointments?: No Do you have trouble paying your heating and electricity bill?: No Do you have trouble taking care of your child, family member or friend?: No Do you have trouble with day-to-day activities such as bathing, preparing meals, shopping, managing finances, etc.?: No Are you currently unemployed and looking for a job?: No Are you interested in more education?: I choose not to answer this question Please select the resources that you would like help with: None Currently or been in a relationship where the following occur: No concerns reported THRIVE Score: 0 AUDIT C Alcohol Use Questionnaire (AUDIT-C) 1. How often do you have a drink containing alcohol?: Monthly or less 2. How many drinks containing alcohol do you have on a typical day when you are drinking?: 1 or 2 3. How often do you have six or more drinks on one occasion?: Less than monthly Total Score: 2 ERNESTINA-7 AMB Questionnaire ERNESTINA-7 Date ERNESTINA - 7 assessed: 12/14/24 Feeling nervous, anxious, or on edge: 0 = Not at all Not being able to stop or control worryin = Not at all Worrying too much about different things: 0 = Not at all Trouble relaxin = Not at all Being so restless that it is hard to sit still: 0 = Not at all Becoming easily annoyed or irritable: 0 = Not at all Feeling afraid as if something awful might happen: 0 = Not at all Total ERNESTINA-7 score (0-4 normal; 5-9 mild; 10-14 moderate; 15-21 severe): 0 Source: Developed by Drs. Gabriel Dc, Brittney Alvarado, Leonardo August and colleagues, with an educational sami from [employer]. ERNESTINA-7 Assessment Billing ERNESTINA-7 Assessment Tool: ERNESTINA-7 Assessment 34299 Physical exam (Primary Care) BMI result Body Mass Index 23.6 Tobacco/Smoking Status: Tobacco use Status Tobacco use date assessed 09/27/24 09/27/24 11:43 Patient Tobacco Use Status Never used Tobacco 09/27/24 11:43 e-Cigarette/Vaping Use Currently Using 09/27/24 11:43 Depression Screening Interpretation: Negative Thrive Assessment: Date of Thrive Assessment Date Thrive assessed 09/27/24 09/27/24 11:43 Currently or been in a relationship where the following occur: No concerns reported Const Orientation/consciousness: patient oriented x3 HENMT Ears: hearing grossly normal bilaterally Neck Thyroid: Thyroid normal Lymphatic: no lymphadenopathy noted Resp Auscultation: clear to auscultation bilaterally Cardio Rate: regular rate Rhythm: regular rhythm Heart sounds: S1 normal heart sound present and S2 normal heart sound present GI Inspection: Yes normal to inspection Palpation (GI): Soft to palpation and Other GI palpation findings present (nontender, no cva tenderness) Auscultation: normoactive bowel sounds Rectal Exam - Male: Yes deferred Skin General skin exam: no rashes or lesions noted Neuro General: patient oriented x3, gait normal and no focal motor deficits Results Reviewed Results Reviewed: CT/CT abdomen pelvis wo IV con IMPRESSION: 1. Nonobstructive 2 mm radiopaque calculi mid pole right kidney. No caliectasis or hydronephrosis seen. 2. Mild constipation. Coding Level of Care Code Est Pt Level 4 (73727) Diagnoses Constipation K59.00 Abdominal bloating R14.0 Additional Codes ERNESTINA-7 Assessment Billing - ERNESTINA-7 Assessment Tool: ERNESTINA-7 Assessment 04427 ([id number]) PHQ-9 - 67980 - PHQ-9 Billing: Yes ([id number]) Assessment & Plan Assessment & Plan (1) Constipation: Code(s): K59.00 - Constipation, unspecified Category: Medical Plan: Encouraged to continue Colace , MiraLax and follow with GI. I have encouraged him to complete labs. (2) Abdominal bloating: Code(s): R14.0 - Abdominal distension (gaseous) Category: Medical Plan: Abdominal exam today is benign. Bloating his improve with the constipation being improved. Plan Follow up if anything worsens or changes. Patient understands and agrees with the plan. Medications: New docusate sodium (Colace) 100 mg PO BID 90 days 180 caps 1RF
[2024-12-14 08:29] VITALS: BP 108/74; PULSE 87; RESP 16; O2SAT 97; BMI 23.6
--- OUTSIDE RECORDS SUMMARY | 2024-12-14 08:43 | XMS_ITS | Encounter Summary ---
Author Organization [facility] Address [address] [place] [phone] Phone Care Team Providers Care Event Promoter Name Role Phone Annalee Eng MD Primary Care Provider [phone] Encounter Details Date Type Department Care Team (Late st Contact Info) Description 11/24/2012 Documentation [facility] Family Medicine [address] [place] [address] Family Medicine, Physician [address] [place], [place] [id number] Social History Tobacco Use Types Packs/Day Years Used Date Smoking Tobacco: Never Assessed Sex and Gender Information Value Date Recorded Sex Assigned at Not on file Legal Sex Male 5:10 PM EDT Gender Identity Male 07/31/2020 9:08 AM EDT Sexual Orientation Not on file documented as of this encounter Plan of Treatment Not on file documented as of this encounter Visit Diagnoses Not on filedocumented in this encounter Care Teams Event Promoter Relationship Specialty Start Date End Date Annalee Eng MD [address] [place] [id number] PCP - General 06/04/17 02/04/23 documented as of this encounter
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
--- OUTSIDE RECORDS SUMMARY | 2024-12-14 08:43 | XMS_ITS | Encounter Summary ---
Author Organization [facility] Address [address] [place] [address] Phone Care Team Providers Care Music Researcher Name Role Phone Annalee Eng MD Primary Care Provider [phone] Encounter Details Date Type Department Care Team ([facility] st Contact Info) Description 06/10/2017 Conversion Encounter [facility] [address] [place] [address] Social History Tobacco Use Types Packs/Day Years Used Date Smoking Tobacco: Never Comments:Never smoker Sex and Gender Information Value Date Recorded Sex Assigned at Not on file Legal Sex Male 5:10 PM EDT Gender Identity Male 07/31/2020 9:08 AM EDT Sexual Orientation Not on file documented as of this encounter Plan of Treatment Not on file documented as of this encounter Visit Diagnoses Not on filedocumented in this encounter Care Teams Music Researcher Relationship Specialty Start Date End Date Annalee Eng MD [address] [place] [address] PCP - General 06/04/17 02/04/23 documented as of this encounter
== END 2024-12-14 10:46 | disposition home or self-care (01) ==
PROVIDERS: PCP Physician Assistant; Visit Provider Physician Assistant
DX: K59.00 Constipation, unspecified (principal); R14.0 Abdominal distension (gaseous)

== ENCOUNTER → 2024-12-14 08:21 | Outpatient (BNVA) | payer BC, SELFPAY | PROVIDERS: PCP Physician Assistant; Visit Provider Physician Assistant | DX: K59.00 Constipation, unspecified (principal); R14.0 Abdominal distension (gaseous) | CPT/HCPCS: 96127 ==